=== PATIENT | female | born 1970 | race Caucasian/White ===

== ENCOUNTER → 2017-11-28 08:56 | Outpatient (CLI) | payer OTHER, MEDICAID, SELFPAY | PROVIDERS: PCP Family Medicine; Visit Provider Physician Assistant | DX: N39.0 Urinary tract infection, site not specified (principal) | CPT/HCPCS: 87077; 87086; 87186 ==

== ENCOUNTER → 2018-07-12 10:16 | Outpatient (CLI) | payer OTHER, MEDICAID, SELFPAY ==
[2018-07-12 11:41] LABS: Cholesterol 164 mg/dL (140-199); Glucose 91 mg/dL (70-100); HDL Cholesterol 66 mg/dL (40-60); LDL Cholesterol Calculated 88 mg/dL (<100); Triglycerides 51 mg/dL (35-150)
[2018-07-12 12:11] LABS: Thyroid Stimulating Hormone 1.26 uIU/mL (0.47-4.68)
== END ==
PROVIDERS: PCP Family Medicine; Visit Provider Family Medicine
DX: Z13.1 Encounter for screening for diabetes mellitus (principal); Z13.220 Encounter for screening for lipoid disorders; Z13.29 Encounter for screening for other suspected endocrine disorder
CPT/HCPCS: 36415; 80061; 82947; 84443

== ENCOUNTER → 2020-06-25 15:24 | Outpatient (CLI) | payer OTHER, SELFPAY ==
--- NOTE | 2020-06-25 15:27 | DI.RAD.S_ITS ---
PROCEDURE: XR CERVICAL SPINE 2V OR 3V INDICATIONS: neck pain TECHNIQUE: 3 view(s) of the cervical spine were acquired. COMPARISON: None. FINDINGS: Bones: No fractures or dislocations to the T1 level. The lateral masses of C1 appear intact on the odontoid view. No suspicious bony lesions. Note is made of a moderate degree of degenerative disc disease at C4-5, and especially C5-6. [id number] C6-C7 degenerative disc height reduction also is present. Soft tissues: No prevertebral soft tissue swelling. IMPRESSION: The degenerative changes at the mid cervical spine include moderate disc height reduction and endplate osteophyte formation at C4-5 and C6-7 and moderately severe such degenerative change at C5-6. This is the presumed etiology of chronic neck pain. Dictated by: Adalberto Wen M.D. on 06/25/2020 at 16:34 Approved by: Adalberto Wen M.D. on 06/25/2020 at 16:35
[2020-06-25 16:41] LABS: Alanine Aminotransferase 18 IU/L (<35); Albumin 4.2 g/dL (3.5-5.0); Albumin Globulin Ratio 1.4 (1.0-2.8); Alkaline Phosphatase 44 U/L (38-126); Aspartate Aminotransferase 23 IU/L (14-36); BUN Creatinine Ratio 14.9 (6-22); Bilirubin Total 0.7 mg/dL (0.2-1.3); Blood Urea Nitrogen 10 mg/dL (7-17); Calcium 9.2 mg/dL (8.4-10.2); Carbon Dioxide 30 mmol/L (22-32); Chloride 103 mmol/L (98-107); Estimated Glomerular Filt Rate > 60.0 mL/min (>60); Globulin 2.9 g/dL (1.7-4.1); Glucose 94 mg/dL (70-100); HEMOLYSIS < 15 (0-50); Sodium 137 mmol/L (137-145); Total Protein 7.1 g/dL (6.3-8.2)
== END ==
PROVIDERS: PCP Family Medicine; Referring Provider Registered Nurse; Visit Provider Registered Nurse
DX: M54.2 Cervicalgia (principal); M47.812 Spondylosis without myelopathy or radiculopathy, cervical region; Z79.899 Other long term (current) drug therapy
CPT/HCPCS: 36415; 72040; 80053

== ENCOUNTER → 2020-07-09 10:11 | Outpatient (CLI) | payer OTHER, SELFPAY ==
[2020-07-09 11:36] LABS: Cholesterol 194 mg/dL (140-199); Glucose 94 mg/dL (70-100); HDL Cholesterol 70 mg/dL (40-60); LDL Cholesterol Calculated 113 mg/dL (<100); Triglycerides 57 mg/dL (35-150)
[2020-07-09 12:07] LABS: Thyroid Stimulating Hormone 1.67 uIU/mL (0.47-4.68)
== END ==
PROVIDERS: PCP Family Medicine; Referring Provider Family Medicine; Visit Provider Family Medicine
DX: Z13.220 Encounter for screening for lipoid disorders (principal); Z13.29 Encounter for screening for other suspected endocrine disorder; Z13.1 Encounter for screening for diabetes mellitus
CPT/HCPCS: 36415; 80061; 82947; 84443

== ENCOUNTER → 2020-07-30 16:01 | Outpatient (CLI) | payer OTHER, SELFPAY ==
--- NOTE | 2020-07-30 16:02 | DI.MG.S_ITS ---
BILATERAL DIGITAL SCREENING MAMMOGRAM 3D/2D WITH CAD: 07/30/2020 CLINICAL: Routine screening. Comparison is made to exam dated: 12/27/2012 [facility]. The tissue of both breasts is extremely dense, which lowers the sensitivity of mammography. Current study was also evaluated with a Computer Aided Detection (CAD) system. No significant masses, calcifications, or other findings are seen in either breast. There has been no significant interval change. IMPRESSION: NEGATIVE There is no mammographic evidence of malignancy. A 1 year screening mammogram is recommended. This exam was interpreted at Station ID: [id number]. NOTE: For mammograms, a report in lay terms will be sent to the patient. Approximately 15% of breast malignancies will not be visualized mammographically. In the management of a palpable breast mass, a negative mammogram must not discourage biopsy of a clinically suspicious lesion. Electronically Signed By: Wilber arnold/shannen:07/30/2020 16:39:22 letter sent: Normal Exam ACR BI-RADS Category 1: Negative 3341F
== END ==
PROVIDERS: PCP Family Medicine; Referring Provider Family Medicine; Visit Provider Family Medicine
DX: Z12.31 Encounter for screening mammogram for malignant neoplasm of breast (principal)
CPT/HCPCS: 77063; 77067

== ENCOUNTER → 2021-03-04 08:33 | Outpatient (CLI) | payer OTHER, SELFPAY ==
[2021-03-04 11:36] LABS: COVID19 -Nasal RAPID Negative (Negative)
== END ==
PROVIDERS: PCP Family Medicine; Visit Provider Nurse Practitioner Family
DX: Z20.822 Contact with and (suspected) exposure to COVID-19 (principal); J02.9 Acute pharyngitis, unspecified; R51.9 Headache, unspecified
CPT/HCPCS: 87635

== ENCOUNTER → 2021-05-31 11:21 | Outpatient (CLI) | payer OTHER, SELFPAY ==
[2021-05-31 14:19] LABS: COVID19 -Nasal RAPID Negative (Negative)
== END ==
PROVIDERS: PCP Family Medicine; Visit Provider Nurse Practitioner Critical Care Medicine
DX: Z20.822 Contact with and (suspected) exposure to COVID-19 (principal); R51.9 Headache, unspecified
CPT/HCPCS: 87635

== ENCOUNTER 2022-10-25 17:03 | Emergency (ER) | payer OTHER, SELFPAY ==
[2022-10-25 17:11] VITALS: BP 155/76; PULSE 68; RESP 18; TEMP 36.8; O2SAT 100; BMI 20.3
== END 2022-10-25 17:34 | disposition left against medical advice (07) ==
PROVIDERS: Emergency Provider Emergency Medicine; PCP Family Medicine
DX: R04.0 Epistaxis (principal)
CPT/HCPCS: 99281

== ENCOUNTER → 2022-10-29 10:38 | Outpatient (CLI) | payer OTHER, SELFPAY ==
[2022-10-29 12:23] LABS: Add Manual Diff / Slide Review NO; Basophils Absolute Auto 0 /uL (0-100); Basophils Percent Auto 0.7 % (0-2); Eosinophils Absolute Auto 100 /uL (0-450); Hematocrit 37.4 % (36-46); Hemoglobin 12.6 g/dL (12.0-16.0); Lymphocytes Absolute Auto 1900 /uL (1100-4500); Lymphocytes Percent Auto 30.6 % (25-40); Mean Corpuscular HGB Conc 33.6 % (30-36); Mean Corpuscular Hemoglobin 31.6 PG (26-34); Mean Corpuscular Volume 93.9 fL (80-100); Monocytes Absolute Auto 500 /uL (0-900); Monocytes Percent Auto 8.1 % (3-14); Neutrophils Absolute Auto 3700 /uL (1500-7000); Neutrophils Percent Auto 59.6 % (50-75); Platelet Count 236 X10^3/uL (150-400); Red Blood Cell Count 3.98 X10^6/uL (4.0-5.2); Red Cell Distribution Width 13.3 % (11.6-14.8); White Blood Cell Count 6.3 X10^3/uL (4.5-11.0)
[2022-10-29 12:27] LABS: PTT Partial Thromboplastin Tim 30 SECONDS (26-36)
[2022-10-29 12:56] LABS: Alanine Aminotransferase 16 IU/L (<35); Albumin 4.2 g/dL (3.5-5.0); Albumin Globulin Ratio 1.4 (1.0-2.8); Alkaline Phosphatase 40 U/L (38-126); Aspartate Aminotransferase 26 IU/L (14-36); Blood Urea Nitrogen 17 mg/dL (7-17); Carbon Dioxide 29 mmol/L (22-32); Chloride 103 mmol/L (98-107); Estimated Glomerular Filt Rate > 60 mL/min (>60); Glucose 84 mg/dL (70-100); HEMOLYSIS < 15 (0-50); Potassium 3.8 mmol/L (3.4-5.1); Sodium 138 mmol/L (137-145); Total Protein 7.2 g/dL (6.3-8.2)
== END ==
PROVIDERS: PCP Family Medicine; Referring Provider Physician Assistant; Visit Provider Physician Assistant
DX: R04.0 Epistaxis (principal); R51.9 Headache, unspecified
CPT/HCPCS: 36415; 80053; 85025; 85610; 85730

== ENCOUNTER 2025-03-31 13:34 | Emergency (ER) | payer BC, SELFPAY ==
[2025-03-31 14:01] VITALS: BP 117/59; PULSE 83; RESP 18; TEMP 37; O2SAT 99; BMI 19.5
--- NOTE | 2025-03-31 14:09 | DI.CT.S_ITS ---
PROCEDURE: CT ABDOMEN PELVIS W CON
--- NOTE | 2025-03-31 14:15 | ED_ITS ---
HPI - Abdominal Pain
--- NOTE | 2025-03-31 14:15 | ED.ABDPAIN ---
HPI - Abdominal Pain <Adenike Raymundo PA-C - Last Filed: 03/31/25 18:50> General Chief Complaint: Abdominal Pain Stated Complaint: poss food poisoning Time Seen by Provider: 03/31/25 14:05 Source: patient Mode of arrival: Ambulatory History of Present Illness HPI narrative: Ms. Mcconnell is a very pleasant 54-year-old female with no reported past medical history who presents to the emergency department for acute-onset abdominal cramping, nausea and diarrhea with bright red blood that started in the middle of the night last night. Patient is concerned symptoms may be related to salmon that she ate for dinner. She went to bed feeling normal but woke up in the middle of the night with severe nausea but no vomiting. She had 3 episodes of loose stools, she did not look at the color. However this morning when she woke up she had another severe episode of abdominal cramping followed by liquid stool with the associated bright red blood. She did not have any rectal pain or discomfort with the bowel movement. She does have a history of hemorrhoids but has not had blood in her stool before. She does not use ibuprofen or NSAIDs frequently. No melena. Occasional alcohol about 2-3 times weekly. She is under a lot of stress at this time. She denies fevers, chills, chest pain, shortness of breath, coughing, upper respiratory symptoms, dysuria, hematuria, flank pain. No prior abdominal surgeries. No menstraul period since November 2024. Related Data Previous Rx's ?Medication ?Instructions ?Recorded ondansetron 4 mg disintegrating 4 mg PO Q8H PRN nausea and 03/31/25 tablet vomiting #14 tabs Allergies Allergy/AdvReac Type Severity Reaction Status Date / Time No Known Drug Allergies Allergy Verified 03/31/25 14:04 Review of Systems <Adenike Raymundo PA-C - Last Filed: 03/31/25 18:50> Review of Systems ROS Unobtainable: All systems reviewed & are unremarkable except as noted in HPI and below Patient History <Adenike Raymundo PA-C - Last Filed: 03/31/25 18:50> Surgical History Status post delivery (06/02/07) Status post delivery (02/20/05) Social History Smoking Status: Never smoker Smoking Status: Never smoker alcohol intake frequency: holidays/special occasions only Exam <Adenike Raymundo PA-C - Last Filed: 03/31/25 18:50> Narrative Exam Narrative: GENERAL: 54 year old patient appears stated age. Well-developed patient, in no acute distress. HEAD: Atraumatic. Normocephalic. EYES: No scleral icterus. No injection or drainage. NECK: Trachea midline. Cervical ROM intact. CARDIOVASCULAR: Regular rate and rhythm. RESPIRATORY: ?Nonlabored respirations. ?Speaking in clear, full sentences. ?Clear to auscultation. Breath sounds equal bilaterally. No wheezes, rales, or rhonchi. ? GASTROINTESTINAL: Abdomen soft, nondistended. There is subjective cramping mild tenderness in the suprapubic/lower abdominal region, negative McBurney's point tenderness negative Osorio's sign. Bowel sounds present. Rectal exam revealed external skin tags, no visible anal fissure, internal rectal exam revealed scant amount of BRB. EXTREMITIES: No LE edema. BACK: No CVA tenderness. NEURO: AOx3. ?Clear speech. ?Moves all 4 extremities appropriately. SKIN: No rash or erythema of visible areas Initial Vital Signs Initial Vital Signs: Vital Signs Temperature 98.6 F 03/31/25 14:01 Pulse Rate 83 03/31/25 14:01 Respiratory Rate 18 03/31/25 14:01 Blood Pressure 117/59 L 03/31/25 14:01 Pulse Oximetry 99 03/31/25 14:01 Oxygen Delivery Method Room Air 03/31/25 14:01 <Abigail Kim DO - Last Filed: 04/03/25 13:24> Initial Vital Signs Initial Vital Signs: Vital Signs Temperature 98.6 F 03/31/25 14:01 Pulse Rate 83 03/31/25 14:01 Respiratory Rate 18 03/31/25 14:01 Blood Pressure 117/59 L 03/31/25 14:01 Pulse Oximetry 99 03/31/25 14:01 Oxygen Delivery Method Room Air 03/31/25 14:01 Course <Adenike Raymundo PA-C - Last Filed: 03/31/25 18:50> Orders Ordered: Discontinued Medications Sodium Chloride (Normal Saline 0.9%) 1,000 mls @ 1,000 mls/hr IV BOLUS ONE Stop: 03/31/25 16:09 Last Infusion: 03/31/25 17:12 Dose: Infused Documented By: Admin: 03/31/25 15:42 Dose: 1,000 mls/hr Documented By: WILL Ondansetron HCl (Ondansetron 4 Mg/2 Ml Inj) 4 mg IV NOW PRN PRN Reason: Nausea And Vomiting Ondansetron HCl (Ondansetron 4 Mg Odt) 4 mg PO NOW PRN PRN Reason: Nausea And Vomiting Pantoprazole Sodium (Pantoprazole 40 Mg Vial) 40 mg IV NOW ONE Stop: 03/31/25 15:12 Last Admin: 03/31/25 15:43 Dose: 40 mg Documented By: WILL Vital Signs Vital signs: Vital Signs - 8 hr 03/31/25 14:01 03/31/25 17:10 Temperature 98.6 F 99.7 F H Pulse Rate 83 67 Respiratory Rate 18 18 Blood Pressure 117/59 L 138/62 Pulse Oximetry 99 98 Oxygen Delivery Method Room Air Room Air <Abigail Kim, - Last Filed: 04/03/25 13:24> Orders Ordered: Discontinued Medications Sodium Chloride (Normal Saline 0.9%) 1,000 mls @ 1,000 mls/hr IV BOLUS ONE Stop: 03/31/25 16:09 Last Infusion: 03/31/25 17:12 Dose: Infused Documented By: Admin: 03/31/25 15:42 Dose: 1,000 mls/hr Documented By: WILL Ondansetron HCl (Ondansetron 4 Mg/2 Ml Inj) 4 mg IV NOW PRN PRN Reason: Nausea And Vomiting Ondansetron HCl (Ondansetron 4 Mg Odt) 4 mg PO NOW PRN PRN Reason: Nausea And Vomiting Pantoprazole Sodium (Pantoprazole 40 Mg Vial) 40 mg IV NOW ONE Stop: 03/31/25 15:12 Last Admin: 03/31/25 15:43 Dose: 40 mg Documented By: WILL Vital Signs Vital signs: Vital Signs - 8 hr 03/31/25 14:01 03/31/25 17:10 Temperature 98.6 F 99.7 F H Pulse Rate 83 67 Respiratory Rate 18 18 Blood Pressure 117/59 L 138/62 Pulse Oximetry 99 98 Oxygen Delivery Method Room Air Room Air MDM - Abdominal Pain <Adenike Raymundo PA-C - Last Filed: 03/31/25 18:50> Medical Records Attestation: I reviewed the patient's medical records. Lab Data 03/31/25 14:23 03/31/25 14:23 Labs: Lab Results 03/31/25 03/31/25 Range/Units 14:23 16:21 WBC 9.3 (4.5-11.0) X10^3/uL RBC 4.41 (4.0-5.2) X10^6/uL Hgb 13.6 (12.0-16.0) g/dL Hct 40.5 (36-46) % MCV 91.8 (80-100) fL MCH 30.9 (26-34) PG MCHC 33.6 (30-36) % RDW 13.4 (11.6-14.8) % Plt Count 255 (150-400) X10^3/uL Neut % (Auto) 79.8 H (50-75) % Lymph % (Auto) 13.4 L (25-40) % [place] % (Auto) 6.3 (3-14) % Eos % (Auto) 0.0 L (2-4) % Baso % (Auto) 0.5 (0-2) % Neut # (Auto) 7500 H (5578-8490) /uL Lymph # (Auto) 1300 (9611-5287) /uL [place] # (Auto) 600 (0-900) /uL Eos # (Auto) 0 (0-450) /uL Baso # (Auto) 0 (0-100) /uL Sodium 134 L (137-145) mmol/L Potassium 4.4 (3.4-5.1) mmol/L Chloride 101 (98-107) mmol/L Carbon Dioxide 24 (22-32) mmol/L BUN 19 H (7-17) mg/dL Creatinine 0.67 (0.52-1.04) mg/dL Estimated GFR > 60 (>60) mL/min BUN/Creatinine Ratio 28.4 H (6-22) Glucose 150 H (70-99) mg/dL Calcium 9.4 (8.4-10.2) mg/dL Magnesium 1.8 (1.6-2.3) mg/dL Total Bilirubin 1.1 (0.2-1.3) mg/dL AST 38 H (14-36) IU/L ALT 21 (<35) IU/L Alkaline Phosphatase 54 (38-126) U/L Total Protein 8.3 H (6.3-8.2) g/dL Albumin 4.9 (3.5-5.0) g/dL Globulin 3.4 (1.7-4.1) g/dL Albumin/Globulin Ratio 1.4 (1.0-2.8) Lipase 52 (23-300) U/L Urine RBC None seen (0-5/HPF) Urine WBC 0-1/hpf (0-5/HPF) Ur Squamous Epith Cells 0-1 /hpf (0-5/HPF) Urine Bacteria Occasional (0-1) (None) Ur Culture Indicated? Cult not indicated Vol Urine Centrifuged 10ml (spun) Point of care testing: Urine Dip Bedside Urine Glucose Negative Bedside Urine Bilirubin - Negative Bedside Urine Ketone - Negative Urine Specific [place] 1.000 Bedside Urine Occult Blood +/- Bedside Urine pH 5.5 Bedside Urine Protein - Negative Bedside Urine Urobilinogen - Negative Bedside Urine Nitrite - Negative Bedside Urine Leukocytes - Negative Esterase Imaging Data CT scan - abdomen/pelvis: Radiologist's Impression: PROCEDURE: CT ABDOMEN PELVIS W CON INDICATIONS: BRB, lower abdomen cramping TECHNIQUE: After the administration of intravenous contrast, axial sections acquired from the lung bases to the pubic symphysis. Coronal and sagittal reformats were performed. For radiation dose reduction, the following was used: automated exposure control, adjustment of mA and/or kV according to patient size. COMPARISON: None. FINDINGS: Image quality: Diagnostic. Lower Chest: No significant findings. ABDOMEN: Liver: Simple hepatic cyst. Liver measures 19 cm. Gallbladder: No radiopaque gallstones or wall thickening. Biliary ducts: No biliary dilation. Pancreas: No ductal dilation. Spleen: Size is within normal limits. Adrenal Glands: No adrenal nodules. Kidneys and Ureters: No hydronephrosis. Simple left renal cyst. Stomach and Bowel: Normal colonic caliber, without significant wall thickening. Scattered colonic stool. Peritoneum: No abnormal intraperitoneal fluid. No free air. Ventral Wall: No significant ventral hernia. Abdominal Nodes: No retroperitoneal or mesenteric adenopathy by size criteria. Vessels: Aorta and inferior vena cava are normal in size. PELVIS: Pelvic Organs: Unremarkable. Bladder: No bladder wall thickening, accounting for underdistention. Pelvic Nodes: No enlarged lymph nodes. Miscellaneous: No inguinal hernias are seen. Bones: No aggressive osseous abnormality. IMPRESSION: No visualized colonic inflammatory change. Dictated by: Mary Jerome M.D. on 03/31/2025 at 15:32 Approved by: Mary Jerome M.D. on 03/31/2025 at 15:37 [facility] Narrative Medical decision making narrative: 54-year-old female with no reported past medical history who presents to the emergency department for acute-onset abdominal cramping, nausea and diarrhea with bright red blood that started in the middle of the night last night. Differential diagnosis includes but is not limited to colitis, diverticulitis, hemorrhoid, gastroenteritis, lower GI bleed, anal fissure, electrolyte abnormality, dehydration, etc. On exam patient is in no acute distress, nontoxic-appearing, all vital signs within normal limits. She reports acute onset abdominal cramping, nausea, diarrhea associated with bright red blood. Abdominal exam is without any rebound or guarding, she does have scant blood on rectal exam, some external skin tags present, no obvious abnormality. We will obtain abdominal labs, CT abdomen pelvis with IV contrast, stool sample, urine sample, treat with IV fluids Protonix Zofran. Labs reveal normal WBC count 9.3, RBC count 4.41, hemoglobin 13.6 hematocrit 40.5. Platelets 255. Sodium 134, potassium 4.4, BUN 19 creatinine 0.67. Glucose 150. Appropriate lipase and LFTs. CT abdomen and pelvis reveals no visualized colonic inflammatory change. Patient was unable to provide a stool sample in the ED, she did not have any episodes of diarrhea. Patient received Protonix and IV fluids in the ED, she declined the needs for Zofran. She had no additional episodes of diarrhea in the ED, no vomiting. Repeat abdominal exams are benign. Discussed with the patient suspicion for gastroenteritis, potentially related to what she ate last night, however also discussed possibility of internal hemorrhoid, anal fissure other sources of lower GI bleed. She is hemodynamically stable. Discussed very strict return precautions with the patient including but not limited to increased bleeding, severe pain, fevers or any concerns. Encouraged bland and liquid diets this weekend including electrolyte supplementation with a Gatorade, Pedialyte. Encourage patient to follow up with her PCP for colonoscopy referral if symptoms improve otherwise return to the ER. Patient verbalized understanding all information agreeable with the plan. She is ambulatory in stable for discharge home. <Abigail Kim, - Last Filed: 04/03/25 13:24> Lab Data Labs: Lab Results 03/31/25 03/31/25 Range/Units 14:23 16:21 WBC 9.3 (4.5-11.0) X10^3/uL RBC 4.41 (4.0-5.2) X10^6/uL Hgb 13.6 (12.0-16.0) g/dL Hct 40.5 (36-46) % MCV 91.8 (80-100) fL MCH 30.9 (26-34) PG MCHC 33.6 (30-36) % RDW 13.4 (11.6-14.8) % Plt Count 255 (150-400) X10^3/uL Neut % (Auto) 79.8 H (50-75) % Lymph % (Auto) 13.4 L (25-40) % [place] % (Auto) 6.3 (3-14) % Eos % (Auto) 0.0 L (2-4) % Baso % (Auto) 0.5 (0-2) % Neut # (Auto) 7500 H (5282-9295) /uL Lymph # (Auto) 1300 (3878-5266) /uL [place] # (Auto) 600 (0-900) /uL Eos # (Auto) 0 (0-450) /uL Baso # (Auto) 0 (0-100) /uL Sodium 134 L (137-145) mmol/L Potassium 4.4 (3.4-5.1) mmol/L Chloride 101 (98-107) mmol/L Carbon Dioxide 24 (22-32) mmol/L BUN 19 H (7-17) mg/dL Creatinine 0.67 (0.52-1.04) mg/dL Estimated GFR > 60 (>60) mL/min BUN/Creatinine Ratio 28.4 H (6-22) Glucose 150 H (70-99) mg/dL Calcium 9.4 (8.4-10.2) mg/dL Magnesium 1.8 (1.6-2.3) mg/dL Total Bilirubin 1.1 (0.2-1.3) mg/dL AST 38 H (14-36) IU/L ALT 21 (<35) IU/L Alkaline Phosphatase 54 (38-126) U/L Total Protein 8.3 H (6.3-8.2) g/dL Albumin 4.9 (3.5-5.0) g/dL Globulin 3.4 (1.7-4.1) g/dL Albumin/Globulin Ratio 1.4 (1.0-2.8) Lipase 52 (23-300) U/L Urine RBC None seen (0-5/HPF) Urine WBC 0-1/hpf (0-5/HPF) Ur Squamous Epith Cells 0-1 /hpf (0-5/HPF) Urine Bacteria Occasional (0-1) (None) Ur Culture Indicated? Cult not indicated Vol Urine Centrifuged 10ml (spun) Point of care testing: Urine Dip Bedside Urine Glucose Negative Bedside Urine Bilirubin - Negative Bedside Urine Ketone - Negative Urine Specific [place] 1.000 Bedside Urine Occult Blood +/- Bedside Urine pH 5.5 Bedside Urine Protein - Negative Bedside Urine Urobilinogen - Negative Bedside Urine Nitrite - Negative Bedside Urine Leukocytes - Negative Esterase Discharge Plan Departure Patient Disposition: Home Clinical Impression: Gastroenteritis, Blood in stool, rick Instructions: DI for Viral Gastroenteritis -- Adult, DI for Rectal Bleeding Activity Restrictions/Additional Instructions: Dear Enedina, Thank you for coming to the emergency department. Today you were evaluated for abdominal cramping, nausea, diarrhea and bloody stool. Your CT scan today did not reveal any abnormalities. Your lab work was overall reassuring however it did reveal a slightly low sodium. At this time I would like you to rest, increase hydration with Gatorade or electrolyte beverages such as Pedialyte, water, eat a bland diet, and follow up with your primary care doctor next week and plan to have a colonoscopy whenever possible. If you develop fevers, severe abdominal pain, increased or continued bloody stools, dizziness or lightheadedness or any other concerns I would like you to return to the emergency department immediately. Please follow up with your primary care doctor within the next 2-3 days for ER follow-up. (If you do not have a PCP you can call [phone]. ?to schedule an appointment with an [facility] Primary Care Provider) IF YOU DEVELOP ANY NEW OR WORSENING SYMPTOMS, RETURN TO THE ER! Please read the attached instructions, they highlight more specific treatments and interventions for you at home. Thank you for letting me participate in your care, Adenike Raymundo PA-C Prescriptions: New ondansetron 4 mg tablet,disintegrating 4 mg PO Q8H PRN (Reason: nausea and vomiting) Qty: 14 0RF Referrals: Tomasa Vargas MD [Primary Care Provider, Family Practice] Stand Alone Forms: Patient Portal/API ED Sign-out <Abigail Kim, - Last Filed: 04/03/25 13:24> Cosign ED Attending Leonidesature Attestation: I was available for consultation.
[2025-03-31 14:35] LABS: Add Manual Diff / Slide Review NO; Hematocrit 40.5 % (36-46); Hemoglobin 13.6 g/dL (12.0-16.0); Lymphocytes Absolute Auto 1300 /uL (1100-4500); Mean Corpuscular HGB Conc 33.6 % (30-36); Mean Corpuscular Hemoglobin 30.9 PG (26-34); Mean Corpuscular Volume 91.8 fL (80-100); Platelet Count 255 X10^3/uL (150-400)
[2025-03-31 14:55] LABS: Alanine Aminotransferase 21 IU/L (<35); Albumin 4.9 g/dL (3.5-5.0); Albumin Globulin Ratio 1.4 (1.0-2.8); Alkaline Phosphatase 54 U/L (38-126); Blood Urea Nitrogen 19 mg/dL (7-17); Calcium 9.4 mg/dL (8.4-10.2); Carbon Dioxide 24 mmol/L (22-32); Chloride 101 mmol/L (98-107); Estimated Glomerular Filt Rate > 60 mL/min (>60); Globulin 3.4 g/dL (1.7-4.1); Glucose 150 mg/dL (70-99); Lipase 52 U/L (23-300); Magnesium 1.8 mg/dL (1.6-2.3); Potassium 4.4 mmol/L (3.4-5.1); Sodium 134 mmol/L (137-145); Total Protein 8.3 g/dL (6.3-8.2)
[2025-03-31 14:56] LABS: HEMOLYSIS 81 (0-50)
[2025-03-31] MEDS: SODIUM CHLORIDE 0.9% 1,000 ML 1000 ML IV (15:42)
[2025-03-31] MEDS: PANTOPRAZOLE 40 MG VIAL IV (15:43)
[2025-03-31 17:02] LABS: Culture Indicated Urine Cult Not Indicated
[2025-03-31 17:10] VITALS: BP 138/62; PULSE 67; RESP 18; TEMP 37.6; O2SAT 98
== END 2025-03-31 17:19 | disposition home or self-care (01) ==
PROVIDERS: Emergency Provider Physician Assistant; PCP Family Medicine
DX: K52.9 Noninfective gastroenteritis and colitis, unspecified (principal); K92.1 Melena; R11.0 Nausea
CPT/HCPCS: 36415; 74177; 80053; 81003; 81015; 83690; 83735; 85025; 87077; 87086; 87147; 96361; 96374; 99284; J2405; J2470; J7030; Q9967